=== PATIENT | male | born 1960 | race Caucasian/White ===

== ENCOUNTER 2020-01-31 14:54 | Observation (INO) | payer MEDICAID, MEDICARE ==
[~2020-01-31] VITALS: Ht 185.4 cm; Wt 106.7 kg
--- NOTE | 2020-01-31 15:20 | NUR ---
PT'S BROTHER, DIMAS , LEAVING TO CHARGE PT'S PHONE. STATES HE MAY BE CONTACTED FOR ANY NEEDS AND FOR UPDATES ON PT'S POC.
--- NOTE | 2020-01-31 15:30 | NUR ---
JENNA AT NOW. PT STATES, "I'M GONNA SHOOT MYSELF WITH A GUN. I'M GONNA DO IT!" C/O PAIN ALL OVER FROM SORES ALL OVER BODY. SWELLING TO BILAT LOWER LEGS. VSS AT THIS TIME. PT BECOMES AGITATED WHEN TALKING WITH STAFF. Addendum: 01/31/20 at 1715 by SABRA CHRISTINE YOUNG AT
[2020-01-31 15:55] LABS: BASOPHILS # (AUTO) 0.01 x10^3/uL (0-0.1); BASOPHILS % (AUTO) 0 % (0-1); EOSINOPHILS % (AUTO) 8 % (1-7); LYMPHOCYTES # (AUTO) 1.17 x10^3/uL (1-3.4); LYMPHOCYTES % (AUTO) 32 % (22-44); MD NO; MEAN CORPUSCULAR HEMOGLOBIN 33.6 pg (27.5-34.5); MEAN CORPUSCULAR HGB CONC 33.4 g/dL (33.2-36.2); MEAN CORPUSCULAR VOLUME 100.6 fL (81-97); MEAN PLATELET VOLUME 8.3 fL (7.4-10.4); MONOCYTES # (AUTO) 0.49 x10^3/uL (0.2-0.8); MONOCYTES % (AUTO) 14 % (2-9); NEUTROPHILS # (AUTO) 1.66 x10^3/uL (1.8-6.8); NEUTROPHILS % (AUTO) 46 % (42-75); PLATELET COUNT 242 x10^3/uL (130-400); RED BLOOD COUNT 3.42 x10^6/uL (4.38-5.82); RED CELL DISTRIBUTION WIDTH 15.3 % (9.4-14.8)
[2020-01-31 16:01] LABS: ALBUMIN 2.6 g/dL (3.4-5.0); ANION GAP 8 mmol/L (5-15); CALCIUM 8.2 mg/dL (8.5-10.1); CHLORIDE 112 mmol/L (98-107); CREATININE 0.87 mg/dL (0.7-1.3); SALICYLATE LEVEL 3.4 mg/dL (2.8-20.0)
[2020-01-31] MEDS ORDERED: ZIPRASIDONE 20 MG INJ IM ONE ×2 (16:33→17:30)
--- NOTE | 2020-01-31 16:37 | NUR ---
PT GOT UP, REMOVED ALL MONITORING EQUIPMENT, AND STATED HE'S GOING TO LEAVE. ERP NOTIFIED, PT PLACED ON LEGAL HOLD. PT STILL TRYING TO LEAVE, YELLING AT STAFF, "YOU CAN'T STOP ME!" SECURITY PLACED PT IN 4-POINT RESTRAINTS. ERP AT NOW FOR ASSESSMENT. Addendum: 01/31/20 at 1715 by SABRA PT GOT UP, REMOVED ALL MONITORING EQUIPMENT, AND STATED HE'S GOING TO LEAVE. ERP NOTIFIED, ADVISED PT BE KEPT IN ED D/T SUICIDAL IDEATION. PT STILL TRYING TO LEAVE, YELLING AT STAFF, "YOU CAN'T STOP ME!" SECURITY PLACED PT IN 4-POINT RESTRAINTS. ERP AT NOW FOR ASSESSMENT. Addendum: 01/31/20 at 1910 by SABRA SITTER OUTSIDE ROOM AT ALL TIMES.
--- NOTE | 2020-01-31 16:45 | NUR ---
PT YELLING AT ERP AND STAFF. MEDICATED WITH GEODON 20MG IM PER DR. COLE. RV'WD POC AND EXPECTAIONS WITH PT.
--- NOTE | 2020-01-31 17:45 | NUR ---
PT MORE CALM NOW BUT STILL YELLING AT STAFF OCCASIONALLY. SITTER OUTSIDE ROOM. 2 RESTRAINTS REMOVED; PT NOW HAS HARD RESTRAINTS TO R ANKLE AND L WRIST.
--- NOTE | 2020-01-31 17:55 | NUR ---
WATER PROVIDED TO PT. RESTRAINT TO L WRIST LOOSENED PER PT REQUEST. PT SITTING UP IN GURNEY. SLIGHTLY SLURRED SPEECH. PT MORE COOPERATIVE AT THIS TIME.
--- NOTE | 2020-01-31 18:29 | NUR ---
TASK RN: PT RESTING ON JEROME. RAY. ALL SAFETY MEASURES OBTAINED. SITTER AT DOORWAY. PT WITHIN FULL VIEW.
--- NOTE | 2020-01-31 18:40 | NUR ---
ALL RESTRAINTS REMOVED. PT STATES HE WILL BE COOPERATIVE. PT WITH SLURRED SPEECH AFTER GEODON. PT STOOD AT SIDE OF BED WITH STAND BY ASSIST AND VOIDED 850ML IN URINAL. BROTHER AT BEDSIDE AGAIN. RV'WD POC WITH PT AND BROTHER. Addendum: 01/31/20 at 1910 by SABRA SITTER REMAINS OUTSIDE ROOM AT ALL TIMES.
[2020-01-31 19:14] LABS: AMPHETAMINE SCREEN, URINE Negative (Negative); BARBITURATE SCREEN, URINE Negative (Negative); BENZODIAZEPINE SCREEN, URINE Negative (Negative); CANNABINOID SCREEN, URINE Negative (Negative); COCAINE SCREEN, URINE Negative (Negative); METHADONE SCREEN, URINE Negative (Negative); OPIATE SCREEN, URINE Negative (Negative)
--- NOTE | 2020-01-31 20:07 | NUR ---
MEAL TRAY PROVIDED TO PT. BREATHALYZER [phone].
--- NOTE | 2020-01-31 21:51 | NUR ---
RN PERFORMED VS AND SEEN PATIENT TO HAVE A HR IN THE 140S. RN PERFORMED A ECG AND SHOWED IT TO THE MD, PATIENT REPORTS HE HAS A HX OF AFIB AND DOES NOT TAKE ANY MEDICATONS HE IS SUPPOSE TO
--- NOTE | 2020-01-31 21:55 | NUR ---
MD IN ROOM AND DISCUSSED TREATMENT PLAN WITH PATIENT, MD DECLARED PATIENT TO NOT BE ON A PSYCH HOLD ANYMORE. PATIENT WAS PLACED ON A HEART MONITOR. HR 140S, BP NORMAL. IV ESTABLISHED AND 10 IV PUSH CARDIZEM TO BE GIVEN
[2020-01-31] MEDS: DILTIAZEM 125 MG in SODIUM CHLORIDE 0.9% 100 ML IV SCH ×2 (22:00→22:38)
[2020-01-31] MEDS ORDERED: ASPIRIN 81 MG TABLET CHEW PO ONE ×2 (22:00→23:30)
[2020-01-31] MEDS ORDERED: ENOXAPARIN 120MG/0.8ML SQ ONE (22:00)
[2020-01-31] MEDS ORDERED: DILTIAZEM 5 MG/ML, 5ML IV ONE ×2 (22:00→22:30)
[2020-01-31] MEDS ORDERED: DILTIAZEM 5 MG/ML, 5ML ONE ×2 (22:29→22:39)
[2020-01-31] MEDS ORDERED: PERMETHRIN CRM 5%, 60GM TP SCH ×2 (22:30→23:30)
--- NOTE | 2020-01-31 22:30 | NUR ---
PATIENTS HR DID NOT RESPOND TO THE 10 IV CARDIZEM AND MD DARRIUS AT BEDSIDE, PLAN TO GIVE ANOTHER 20 IV CARDIZEM. PATIENT REPORTS HE IS SLIGHTLY SOB, HR 140-150, OYGEN 95 ON RA. RN PLACED PATIENT ON OXYGEN FOR COMFORT
--- NOTE | 2020-01-31 22:35 | NUR ---
PATIENT HAS BEEN COOPERATIVE WITH RN, HE REPORTS HE IS NOT SI, HE REPORTS " I DIDNT MEAN IT, YOU JUST SAY THINGS LIKE THAT WHEN YOUR IN PAIN, THAN YOU GUYS TIE ME DOWN". PATIENT HAS NOT BEEN A PROBLEM FOR THIS RN
[2020-01-31 22:38] LABS: TROPONIN I 0.033 ng/mL (0.000-0.045)
--- NOTE | 2020-01-31 23:08 | NUR ---
PATIENTS HR IMPROVED SLIGHTLY TO HIGH 110S AND LOW 120S, IV CARDIZEM DRIP RUNNING
[2020-01-31] MEDS ORDERED: PERMETHRIN CRM 5%, 60GM ONE (23:11)
[2020-01-31] MEDS ORDERED: ASPIRIN 81 MG TABLET CHEW ONE (23:22)
[2020-01-31] MEDS ORDERED: DIPHENHYDRAMINE 25 MG CAPSULE PO PRN (23:30)
[2020-01-31] MEDS ORDERED: MELATONIN 5 MG TABLET PO PRN (23:30)
[2020-01-31] MEDS ORDERED: LORazepam 2 MG/ML, 1ML IVPush PRN (23:30)
[2020-01-31] MEDS ORDERED: POLYETHYLENE GLYCOL 17 GM PACKET PO PRN (23:30)
[2020-01-31] MEDS ORDERED: DOCUSATE 100 MG CAPSULE PO PRN (23:30)
[2020-01-31] MEDS ORDERED: THIAMINE 100MG TABLET PO SCH (23:30)
[2020-01-31] MEDS ORDERED: HYDROcodone/APAP 5/325 TABLET PO PRN (23:30)
[2020-01-31] MEDS: ENOXAPARIN 40 MG/0.4 ML SQ SCH (23:30)
[2020-01-31] MEDS ORDERED: BISACODYL 10 MG SUPP PR PRN (23:30)
[2020-01-31] MEDS ORDERED: PROMETHAZINE 25 MG/ML, 1ML IM PRN (23:30)
[2020-01-31] MEDS ORDERED: ONDANSETRON 2MG/ML, 2ML IVPush PRN (23:30)
[2020-01-31] MEDS ORDERED: LABETALOL 5MG/ML, 20ML IVPush PRN (23:30)
[2020-01-31] MEDS ORDERED: ACETAMINOPHEN 325 MG TABLET PO PRN (23:30)
[2020-01-31] MEDS ORDERED: CHLORDIAZEPOXIDE 25 MG CAPSULE PO PRN (23:30)
[2020-01-31] MEDS ORDERED: hydrALAzine 20 MG/ML, 1ML IVPush PRN (23:30)
[2020-01-31] MEDS ORDERED: MORPHINE SULFATE 4 MG/ML, 1ML ONE (23:34)
[2020-01-31] MEDS: morphine SULFATE 10 MG/ML, 1ML IVPush PRN (23:35)
[2020-02-01] MEDS ORDERED: FUROSEMIDE 40 MG/4 ML IV ONE
[2020-02-01] MEDS ORDERED: DILTIAZEM 125 MG in SODIUM CHLORIDE 0.9% 100 ML IV SCH ×2
[2020-02-01 00:28] VITALS: BP 117/75
[2020-02-01] MEDS: NICOTINE 7 MG/24 HR PATCH.TD24 TD SCH ×2 (01:06→22:50)
[2020-02-01] MEDS: DILTIAZEM 60 MG TABLET PO SCH ×2 (04:07→08:11)
[2020-02-01 06:12] LABS: ANION GAP 9 mmol/L (5-15); CALCIUM 8.1 mg/dL (8.5-10.1); CHLORIDE 106 mmol/L (98-107); CHOLESTEROL, TOTAL 171 mg/dL (140-239); CREATININE 0.74 mg/dL (0.7-1.3); TRIGLYCERIDES 169 mg/dL (50-200); VLDL CHOLESTEROL 34 mg/dL (0-25)
[2020-02-01 06:14] LABS: BASOPHILS # (AUTO) 0.01 x10^3/uL (0-0.1); BASOPHILS % (AUTO) 0 % (0-1); EOSINOPHILS # (AUTO) 0.21 x10^3/uL (0-0.4); EOSINOPHILS % (AUTO) 4 % (1-7); LYMPHOCYTES # (AUTO) 1.01 x10^3/uL (1-3.4); LYMPHOCYTES % (AUTO) 21 % (22-44); MD NO; MEAN CORPUSCULAR HEMOGLOBIN 32.8 pg (27.5-34.5); MEAN CORPUSCULAR HGB CONC 32.4 g/dL (33.2-36.2); MEAN PLATELET VOLUME 8.2 fL (7.4-10.4); MONOCYTES # (AUTO) 0.53 x10^3/uL (0.2-0.8); MONOCYTES % (AUTO) 11 % (2-9); NEUTROPHILS # (AUTO) 2.95 x10^3/uL (1.8-6.8); NEUTROPHILS % (AUTO) 63 % (42-75); PLATELET COUNT 218 x10^3/uL (130-400); RED BLOOD COUNT 3.49 x10^6/uL (4.38-5.82); RED CELL DISTRIBUTION WIDTH 15.3 % (9.4-14.8)
[2020-02-01 06:16] LABS: CHOL/HDL RATIO 5.7; HDL CHOL % 18 % (26-37); HDL CHOLESTEROL (DIRECT) 30 mg/dL (40-60); LDL CHOLESTEROL,CALCULATED 107 mg/dL (54-169); LDL/HDL RATIO 3.6 (0.5-3.0); TROPONIN I 0.047 ng/mL (0.000-0.045)
[2020-02-01 07:08] VITALS: BP 116/73
[2020-02-01] MEDS ORDERED: LORazepam 1MG TABLET PO PRN ×4 (08:30)
[2020-02-01] MEDS ORDERED: LORazepam 0.5MG TABLET PO PRN (08:30)
[2020-02-01] MEDS ORDERED: DIPHENHYDRAMINE 25 MG CAPSULE PO PRN (08:30)
[2020-02-01] MEDS ORDERED: MAGNESIUM SULFATE PMX 2GM/50ML 50 ML IV ONE (08:30)
[2020-02-01] MEDS: DILTIAZEM 125 MG in SODIUM CHLORIDE 0.9% 100 ML IV SCH ×3 (08:32→22:30)
[2020-02-01] MEDS ORDERED: FOLIC ACID 1 MG TABLET PO SCH (09:00)
[2020-02-01] MEDS ORDERED: FAMOTIDINE 20 MG TABLET PO SCH (09:00)
[2020-02-01] MEDS ORDERED: FUROSEMIDE 20 MG/2 ML IV ONE (09:00)
[2020-02-01] MEDS ORDERED: VANCOMYCIN PER PHARMACY MC PRN (09:00)
[2020-02-01] MEDS: SENNA/DOCUSATE TABLET PO SCH (09:00)
[2020-02-01] MEDS ORDERED: VANCOMYCIN PMX 1GM/200ML 200 ML IV ONE (09:00)
[2020-02-01] MEDS ORDERED: PHARMACOKINETIC MONITORING MC PRN (09:30)
[2020-02-01] MEDS ORDERED: PHARMACOKINETIC CONSULTATION MC ONE (09:30)
[2020-02-01] MEDS ORDERED: VANCOMYCIN 2,300 MG in SODIUM CHLORIDE 0.9% 500 ML IV SCH (09:30)
[2020-02-01] MEDS: FOLIC ACID 1 MG TABLET PO SCH (09:33)
[2020-02-01] MEDS: CHLORDIAZEPOXIDE 25 MG CAPSULE PO SCH ×3 (09:34→21:24)
[2020-02-01] MEDS: MULTIVITAMINS/MINERALS TABLET PO SCH (09:34)
[2020-02-01] MEDS: MAGNESIUM OXIDE 400 MG TABLET PO SCH (09:34)
[2020-02-01] MEDS: THIAMINE 100MG TABLET PO SCH (09:34)
[2020-02-01] MEDS: AMPICILLIN/SULBACTAM 3 GM in SODIUM CHLORIDE 0.9% 100 ML IV SCH ×3 (10:11→22:28)
[2020-02-01] MEDS: POTASSIUM CHLORIDE 20 MEQ TAB.ER.PRT PO SCH ×3 (10:12→16:26)
[2020-02-01] MEDS: VANCOMYCIN 2,300 MG in SODIUM CHLORIDE 0.9% 500 ML IV SCH (11:24)
[2020-02-01] MEDS ORDERED: POTASSIUM CHLORIDE 20 MEQ TAB.ER.PRT PO SCH (12:00)
[2020-02-01 12:37] VITALS: BP 119/83
[2020-02-01] MEDS: FUROSEMIDE 20 MG/2 ML IV SCH (16:26)
[2020-02-01 20:00] VITALS: BP 127/69
[2020-02-01] MEDS: ENOXAPARIN 40 MG/0.4 ML SQ SCH (22:50)
[2020-02-02] MEDS: morphine SULFATE 10 MG/ML, 1ML IVPush PRN ×2 (01:37→09:40)
[2020-02-02 02:00] VITALS: BP 132/73
[2020-02-02] MEDS: AMPICILLIN/SULBACTAM 3 GM in SODIUM CHLORIDE 0.9% 100 ML IV SCH ×2 (04:58→10:30)
[2020-02-02 05:37] LABS: BASOPHILS # (AUTO) 0.01 x10^3/uL (0-0.1); BASOPHILS % (AUTO) 0 % (0-1); EOSINOPHILS # (AUTO) 0.18 x10^3/uL (0-0.4); EOSINOPHILS % (AUTO) 4 % (1-7); LYMPHOCYTES # (AUTO) 0.67 x10^3/uL (1-3.4); LYMPHOCYTES % (AUTO) 16 % (22-44); MD NO; MEAN CORPUSCULAR HGB CONC 33.2 g/dL (33.2-36.2); MEAN CORPUSCULAR VOLUME 99.4 fL (81-97); MEAN PLATELET VOLUME 8.4 fL (7.4-10.4); MONOCYTES # (AUTO) 0.48 x10^3/uL (0.2-0.8); MONOCYTES % (AUTO) 11 % (2-9); NEUTROPHILS # (AUTO) 2.98 x10^3/uL (1.8-6.8); NEUTROPHILS % (AUTO) 69 % (42-75); PLATELET COUNT 191 x10^3/uL (130-400); RED BLOOD COUNT 3.42 x10^6/uL (4.38-5.82); RED CELL DISTRIBUTION WIDTH 14.6 % (9.4-14.8)
[2020-02-02 05:49] LABS: ALANINE AMINOTRANSFERASE 33 U/L (12-78); ALBUMIN 2.5 g/dL (3.4-5.0); ANION GAP 7 mmol/L (5-15); CALCIUM 8.4 mg/dL (8.5-10.1); CHLORIDE 106 mmol/L (98-107); CREATININE 0.68 mg/dL (0.7-1.3)
[2020-02-02 05:51] LABS: ALKALINE PHOSPHATASE 174 U/L (45-117); BILIRUBIN,TOTAL 1.5 mg/dL (0.2-1.0); TOTAL PROTEIN 6.3 g/dL (6.4-8.2)
[2020-02-02] MEDS ORDERED: ASPIRIN 325 MG TABLET EC PO SCH (06:00)
[2020-02-02] MEDS ORDERED: MAGNESIUM SULFATE PMX 2GM/50ML 50 ML IV ONE (07:00)
[2020-02-02 07:45] VITALS: BP 112/71
[2020-02-02] MEDS ORDERED: METOPROLOL TARTRATE 50 MG TAB PO SCH (08:00)
[2020-02-02] MEDS ORDERED: DILTIAZEM 5 MG/ML, 5ML IVPush PRN (08:00)
[2020-02-02] MEDS: SENNA/DOCUSATE TABLET PO SCH (09:08)
[2020-02-02] MEDS: POTASSIUM CHLORIDE 20 MEQ TAB.ER.PRT PO SCH ×2 (09:08→12:30)
[2020-02-02] MEDS: MULTIVITAMINS/MINERALS TABLET PO SCH (09:08)
[2020-02-02] MEDS: FUROSEMIDE 20 MG/2 ML IV SCH (09:08)
[2020-02-02] MEDS: MAGNESIUM OXIDE 400 MG TABLET PO SCH (09:08)
[2020-02-02] MEDS: THIAMINE 100MG TABLET PO SCH (09:09)
[2020-02-02] MEDS: FOLIC ACID 1 MG TABLET PO SCH (09:09)
[2020-02-02] MEDS ORDERED: OXYcodone IR 5MG TABLET PO PRN (10:00)
[2020-02-02] MEDS: VANCOMYCIN 2,300 MG in SODIUM CHLORIDE 0.9% 500 ML IV SCH (12:31)
[2020-02-02 12:45] VITALS: BP 117/74
[2020-02-02] MEDS ORDERED: MULT-484 PO (16:11)
[2020-02-02] MEDS ORDERED: FOLI-17 PO (16:11)
[2020-02-02] MEDS ORDERED: THIA100T67 PO (16:11)
[2020-02-02] MEDS ORDERED: DOXY100T PO (16:11)
[2020-02-02] MEDS ORDERED: ASPI-650 PO (16:11)
[2020-02-02] MEDS ORDERED: METO50TA82 PO (16:11)
[2020-02-02] MEDS ORDERED: MAGN400T50 PO (16:11)
[2020-02-02] MEDS ORDERED: CEFD300C37 PO (16:11)
[2020-02-02] MEDS ORDERED: DOXYCYCLINE 100MG TABLET PO SCH (21:00)
[2020-02-02] MEDS ORDERED: CEFDINIR 300 MG CAPSULE PO SCH (21:00)
== END 2020-02-02 16:50 | disposition left against medical advice (07) ==
LOC: ED 15:24 → EDIP 22:34 → INTOOBSV 22:34 → 5SO 02-01 00:13 → INTOOBSV 02-02 09:38 → OBSVTOIN 02-02 09:38
PROVIDERS: ADMIT Internal Medicine; ATTEND Internal Medicine
DX: I48.20 Chronic atrial fibrillation, unspecified (principal); I50.33 Acute on chronic diastolic (congestive) heart failure; J44.9 Chronic obstructive pulmonary disease, unspecified; L03.115 Cellulitis of right lower limb; L03.116 Cellulitis of left lower limb; R45.851 Suicidal ideations; D68.69 Other thrombophilia; D75.89 Other specified diseases of blood and blood-forming organs; E83.42 Hypomagnesemia; E87.6 Hypokalemia; E88.09 Other disorders of plasma-protein metabolism, not elsewhere classified; F10.220 Alcohol dependence with intoxication, uncomplicated; F31.9 Bipolar disorder, unspecified; I11.0 Hypertensive heart disease with heart failure; F17.210 Nicotine dependence, cigarettes, uncomplicated; I48.92 Unspecified atrial flutter; G47.30 Sleep apnea, unspecified; E44.0 Moderate protein-calorie malnutrition; I08.2 Rheumatic disorders of both aortic and tricuspid valves; B86 Scabies; Z79.82 Long term (current) use of aspirin; Z91.19 Patient's noncompliance with other medical treatment and regimen; Z95.2 Presence of prosthetic heart valve; Z86.73 Personal history of transient ischemic attack (TIA), and cerebral infarction without residual deficits; Z88.5 Allergy status to narcotic agent
CPT/HCPCS: 36415; 71045; 80048; 80053; 80061; 80307; 82040; 83735; 84100; 84443; 84484; 85025; 93005; 93306; 96365; 96366; 96368; 96372; 96375; 96376; 99291; G0378; J0295; J1650; J1940; J2060; J2270; J3370; J3475; J3486; J7040; 96374